=== PATIENT | male | born 1975 | race African-American/Black ===

== ENCOUNTER 2023-05-05 20:40 | Emergency (ER) | payer OTHER, SELFPAY ==
[2023-05-05] VITALS (7 sets, daily range): BP systolic 175–193; BP diastolic 107–125; BMI 34.4
--- NOTE | 2023-05-05 22:37 | ED.GENMED ---
History of Present Illness
<Alicia Sebastian DEMOLITION ENGINEER - Last Filed: 05/08/23 19:40>
General
Chief Complaint: Blood Pressure Problem
Source: patient
Exam Limitations: none
Time Seen by Provider: 05/05/23 22:37
Nursing documentation reviewed up to this point in time: agreed with
Travel History
Have you had any contact with someone who has COVID-19?: Unable to Answer
Do you have any symptoms of coronavirus? Fever > 100 degrees, chills, cough, shortness of breath, sore throat, loss of taste or smell, muscle aches, or headache?: Unable to Answer
History of Present Illness
History of Present Illness:
47-year-old male with history of renal insufficiency, CAD, HTN, supposed to take lisinopril 5 mg daily but states he has not taken it in 3 days, since he's been incarcerated. Guards with pt state the [facility] will not accept him with this high blood
pressure. Patient denies chest pain or trouble breathing. Denies headache, feeling lightheaded or dizzy. Denies abdominal pain. Denies N/V/D/C.
Past History
<Alicia Sebastian, DEMOLITION ENGINEER - Last Filed: 05/08/23 19:40>
Past History
ED Past Medical History: CAD, HTN and Renal failure
Social History
Personal: Single
Living: [facility]
Review of Systems
<Alicia Sebastian, DEMOLITION ENGINEER - Last Filed: 05/08/23 19:40>
Review of Systems
Allergies reviewed?: Yes
All Other Systems: ROS reviewed and negative except as documented in HPI and ROS
Constitutional: Denies fever or fatigue
Respiratory: Denies trouble breathing
Cardiac: Denies chest pain
ABD/GI: Denies abdominal pain, nausea, vomiting, diarrhea or anorexia
: Denies dysuria, frequency or difficulty voiding
Musculoskeletal: Reports no symptoms
Skin: Reports no symptoms
Neurological: Reports no symptoms
Phy Exam
<Alicia Sebastian, DEMOLITION ENGINEER - Last Filed: 05/08/23 19:40>
Physical Exam
Physical Exam:
GENERAL: No acute distress. A&Ox3.
CONSTITUTIONAL: Afebrile.
EYES: PERRL, conjunctivae normal
ENMT: moist mucus membranes, Pharynx nl
RESPIRATORY: Regular respirations, nonlabored, lungs clear.
CARDIOVASCULAR: Regular rate and rhythm, no murmurs, no rubs.
GI: Soft, nontender
MUSCULOSKELETAL: Moves with ease. Well perfused. No edema
SKIN: Warm, dry, normal
PSYCH: Normal mood and affect. Well kept, interactive and appropriate
NEUROLOGIC: Awake, alert and oriented. No focal neurological deficits
Course
<Alicia Sebastian, DEMOLITION ENGINEER - Last Filed: 05/08/23 19:40>
Orders/Labs/Results
Orders:
Orders
05/05/23 23:06
HydrALAZINE [Apresoline] 10 mg IV NOW STA
05/05/23 23:07
Lisinopril [Zestril] 5 mg PO NOW STA
05/05/23 23:31
Complete Blood Count/With Diff Urgent
Comprehensive Metabolic Panel Urgent
05/05/23 23:33
HydrALAZINE [Apresoline] 20 mg .ROUTE .STK-MED ONE
Lisinopril [Zestril] 10 mg .ROUTE .STK-MED ONE
05/05/23 23:42
Lisinopril [Zestril] 10 mg PO NOW STA
05/05/23 23:52
0.9% Sodium Chloride 500 ml [Nss] 500 ml IV BOLUS
Abnormal Lab Results
05/05/23
23:31
BUN 29 H mg/dl
(9-20)
Glucose 173 H mg/dl
(70-99)
05/05/23 23:31
05/05/23 23:31
Vital Signs
Initial and Last Documented VS:
Initial Vital Signs
Temp Pulse Resp BP Pulse Ox
98.3 F 69 16 176/125 98
05/05/23 20:56 05/05/23 20:56 05/05/23 20:56 05/05/23 20:56 05/05/23 20:56
Last Documented Vital Signs
Temp Pulse Resp BP Pulse Ox
98.3 F 73 15 178/84 99
05/05/23 20:56 05/06/23 02:30 05/06/23 02:30 05/06/23 02:03 05/06/23 02:03
Andreylt;Aleksandr Hudson MD - Last Filed: 05/06/23 02:23>
Orders/Labs/Results
Orders:
Orders
05/05/23 23:06
HydrALAZINE [Apresoline] 10 mg IV NOW STA
05/05/23 23:07
Lisinopril [Zestril] 5 mg PO NOW STA
05/05/23 23:31
Complete Blood Count/With Diff Urgent
Comprehensive Metabolic Panel Urgent
05/05/23 23:33
HydrALAZINE [Apresoline] 20 mg .ROUTE .STK-MED ONE
Lisinopril [Zestril] 10 mg .ROUTE .STK-MED ONE
05/05/23 23:42
Lisinopril [Zestril] 10 mg PO NOW STA
05/05/23 23:52
0.9% Sodium Chloride 500 ml [Nss] 500 ml IV BOLUS
Abnormal Lab Results
05/05/23
23:31
BUN 29 H mg/dl
(920)
Glucose 173 H mg/dl
(70-99)
05/05/23 23:31
05/05/23 23:31
Vital Signs
Initial and Last Documented VS:
Initial Vital Signs
Temp Pulse Resp BP Pulse Ox
98.3 F 69 16 176/125 98
05/05/23 20:56 05/05/23 20:56 05/05/23 20:56 05/05/23 20:56 05/05/23 20:56
Last Documented Vital Signs
Temp Pulse Resp BP Pulse Ox
98.3 F 73 15 178/84 99
05/05/23 20:56 05/06/23 02:30 05/06/23 02:30 05/06/23 02:03 05/06/23 02:03
<Alicia Sebastian NP - Last Filed: 05/08/23 19:40>
MDM/Problems Addressed
Differential Diagnosis Includes:
Hypertensive urgency, endorgan damage
MDM/Problems Addressed:
47-year-old male with history of renal insufficiency, CAD, HTN, supposed to take lisinopril 5 mg daily but states he has not taken it in 3 days, since he's been incarcerated. Guards with pt state the [facility] will not accept him with this high blood
pressure. Patient denies chest pain or trouble breathing. Denies headache, feeling lightheaded or dizzy. Denies abdominal pain. Denies N/V/D/C.
05/05/2023 2351 PM
CBC normal
CMP: BUN 29
05/06/2023 0021 AM
After IV hydralazine and lisinopril 10 mg p.o. patient's blood pressure was 199/[address] Hudson who will assume care from this point.
<Alicia Sebastian NP - Last Filed: 05/08/23 19:40>
*Critical Care Note
Total Time (30-74mins, 75-104mins- exclusive of procedures): Not Applicable
<Aleksandr Hudson MD - Last Filed: 05/06/23 02:23>
Update Note
Update Note:
Patient with an unremarkable workup in ED. Patient's blood pressure 178/84 after treatment. Patient remains asymptomatic. Patient will be discharged in stable condition with recommendation to continue his medications
ED Attending Note
<Alicia Sebastian NP - Last Filed: 05/08/23 19:40>
-
Portions of this chart may have been created with voice recognition software.� Occasional wrong word or��sound alike� substitutions may have occurred due to the inherent limitations of voice recognition software.
Discharge Plan
Departure
Patient Disposition: Long-Term
Date of Disposition: 05/06/23
Time of Disposition: 02:20
Patient with high blood pressure during this ER visit?: Yes
Condition: Fair
Discharge Problem:
Hypertension
Instructions: High Blood Pressure (DC)
Referrals:
UNKNOWN - PT DOES,NOT KNOW [Family Provider] -
Activity Restrictions/Additional Instructions:
As discussed, please follow-up with your primary care physician for any further concerns. Please resume your home blood pressure medications, as originally prescribed.
Interventions
Interventions:
*Risk Screen - Suicide Last Done: 05/05/23 20:56
*General Assessment Last Done: 05/05/23 20:56
*Neglect/Abuse Screening Last Done: 05/05/23 20:56
ED- Fall Risk Assessment Last Done: 05/05/23 21:13
*ED COVID-19 Vaccine History Last Done: 05/05/23 21:13
*Nursing Disposition Last Done: 05/06/23 02:45
ED- Cardiac Assessment Last Done: 05/05/23 21:13
ED- Neurological Assessment Last Done: 05/05/23 21:13
ED- Pulmonary Assessment Last Done: 05/05/23 21:13
Discharge Date and Time
Discharge Date/Time: 05/06/23 02:45
[2023-05-05] MEDS: APRESOLINE 10 MG IV (23:35)
[2023-05-05 23:36] LABS: % Basophils 0.5 % (0-2); % Eosinophils 2.5 % (0-6); % Immature Granulocytes 0.3 % (0-0.5); % Lymphocytes 42.4 % (20.5-51.1); % Monocytes 7.9 % (1.7-9.3); % Neutrophils 46.4 % (42.2-75.2); Absolute Eosinophils 0.2 10^3/uL (0-0.7); Absolute Lymphocytes 2.5 10^3/uL (1.2-3.4); Absolute Monocytes 0.5 10^3/uL (0.1-0.6); Absolute Neutrophils 2.8 10^3/uL (1.4-6.5); Hematocrit 41.5 % (39.0-52.0); Hemoglobin 14.7 g/dL (13.0-18.0); Mean Corp Hgb Conc. 35.4 g/dL (33.0-37.0); Mean Corpuscular Hgb 30.9 pg (27.0-31.0); Mean Corpuscular Volume 87.2 fL (80.0-94.0); Mean Platelet Volume 10.1 fL (7.4-10.4); Nucleated Red Blood Cells % 0 % (-); Platelet Count 244 10^3/uL (130-400); Red Blood Cell Count 4.76 10^6/uL (4.70-6.10); Red Cell Dist. Width 12.6 % (11.5-14.5)
[2023-05-05] MEDS: ZESTRIL 10 MG PO (23:43)
[2023-05-05 23:50] LABS: ALT (SGPT) 39 U/L (0-50); AST (SGOT) 28 U/L (17-59); Albumin 3.6 g/dl (3.5-5.0); Alkaline Phosphatase 80 U/L (38-126); Blood Urea Nitrogen 29 mg/dl (9-20); Calcium 9.5 mg/dl (8.4-10.2); Carbon Dioxide 30 mmol/L (22-30); Chloride 100 mmol/L (98-107); Estimated Creatinine Clearance > 125 ml/min; Glucose 173 mg/dl (70-99); Potassium 3.8 mmol/L (3.5-5.1); Sodium 136 mmol/L (135-145); Total Bilirubin 0.5 mg/dl (0.2-1.3); Total Protein 6.3 g/dl (6.3-8.2); eGFR > 60.00
[2023-05-06] VITALS (7 sets, daily range): BP systolic 163–192; BP diastolic 84–120
[2023-05-06] MEDS: NSS 500 IV (00:42)
== END 2023-05-06 02:45 ==
LOC: EMR 20:40
PROVIDERS: Registered Nurse; EMERGENCY PHYSICIAN Emergency Medicine
DX: I10 Essential (primary) hypertension (principal); N28.9 Disorder of kidney and ureter, unspecified; I25.10 Atherosclerotic heart disease of native coronary artery without angina pectoris
CPT/HCPCS: 99284; 96374; 80053; 85025